=== PATIENT | female | born 1955 | race Caucasian/White ===

== ENCOUNTER → 2017-04-25 | Outpatient (REF) | LOC: WSOH 13:48 | DX: Z01.10 Encounter for examination of ears and hearing without abnormal findings (principal) ==

== ENCOUNTER 2017-10-03 10:30 | Outpatient (RCR) | payer OTHER | END 2017-12-21 09:52 | disposition home or self-care (01) | LOC: WSOH 10:30 | DX: S61.317A Laceration without foreign body of left little finger with damage to nail, initial encounter (principal); W23.1XXA Caught, crushed, jammed, or pinched between stationary objects, initial encounter; Y99.0 Civilian activity done for income or pay; F10.21 Alcohol dependence, in remission; Z88.0 Allergy status to penicillin ==

== ENCOUNTER 2017-10-03 12:54 | Emergency (ER) | payer OTHER ==
[~2017-10-03] VITALS: Ht 162.6 cm; Wt 64.5 kg
[2017-10-03 12:59] VITALS: BP 199/90
[2017-10-03 15:03] VITALS: PULSE 76; TEMP 97.6
== END 2017-10-03 15:02 | disposition home or self-care (01) ==
LOC: COL.ER 12:54
DX: S61.216A Laceration without foreign body of right little finger without damage to nail, initial encounter (principal); W23.0XXA Caught, crushed, jammed, or pinched between moving objects, initial encounter; Y92.69 Other specified industrial and construction area as the place of occurrence of the external cause; Y99.0 Civilian activity done for income or pay

== ENCOUNTER 2018-08-05 14:24 | Outpatient (RCR) | payer OTHER | END 2018-08-08 09:58 | disposition home or self-care (01) | LOC: WSOH 14:24 | DX: M25.512 Pain in left shoulder (principal); F17.210 Nicotine dependence, cigarettes, uncomplicated ==

== ENCOUNTER 2018-11-01 15:45 | Outpatient (RCR) | payer BC | END 2018-11-17 | disposition home or self-care (01) | LOC: MKS.ESL.PT | DX: M75.02 Adhesive capsulitis of left shoulder (principal) ==